=== PATIENT | male | born 1970 | race Two or more races ===

== ENCOUNTER 2017-08-03 11:08 | Observation (INO) | payer MEDICAID ==
[~2017-08-03] VITALS: Ht 167.6 cm; Wt 77.7 kg
[2017-08-03 11:48] LABS: BASOPHILS % (AUTO) 0.2 % (0-1); EOSINOPHILS # (AUTO) 0.1 X10'3 (0-0.9); EOSINOPHILS % (AUTO) 1.1 % (0-6); HEMATOCRIT 46.4 % (42.0-52.0); HEMOGLOBIN 15.6 g/dl (14.0-17.9); LYMPHOCYTES # (AUTO) 1.4 X10'3 (1.1-4.8); LYMPHOCYTES % (AUTO) 17.5 % (21-51); MEAN CORPUSCULAR HEMOGLOBIN 30.6 PG (27.0-31.0); MEAN CORPUSCULAR HGB CONC 33.6 % (33.0-36.5); MEAN CORPUSCULAR VOLUME 90.9 FL (78-98); MEAN PLATELET VOLUME 8.2 FL (7.4-10.4); MONOCYTES # (AUTO) 0.3 X10'3 (0-0.9); MONOCYTES % (AUTO) 3.8 % (2-12); NEUTROPHILS % (AUTO) 77.4 % (42-75); PLATELET COUNT 288 X10'3 (140-440); RED BLOOD COUNT 5.11 X10'6 (4.70-6.10); RED CELL DISTRIBUTION WIDTH 13.3 % (11.5-14.5); WHITE BLOOD COUNT 7.8 X10'3 (4.5-11.0)
[2017-08-03 11:59] LABS: PARTIAL THROMBOPLASTIN TIME 25 SECONDS (22-32); PROTHROMBIN TIME 10.7 SECONDS (9.0-12.0)
[2017-08-03 12:07] LABS: ALANINE AMINOTRANSFERASE 65 U/L (12-78); ALBUMIN 3.9 G/DL (3.4-5.0); ALBUMIN/GLOBULIN RATIO 0.9 (1.1-1.5); ALKALINE PHOSPHATASE 126 IU/L (46-116); ANION GAP 8 (8-16); ASPARTATE AMINO TRANSFERASE 37 U/L (10-37); BILIRUBIN,TOTAL 0.6 MG/DL (0.1-1.0); BLOOD UREA NITROGEN 16 MG/DL (7-18); BUN/CREATININE RATIO 13.6 (5.4-32.0); CALCIUM 9.8 MG/DL (8.5-10.1); CHLORIDE 102 MMOL/L (99-107); CREATININE 1.18 MG/DL (0.60-1.10); GLUCOSE 115 MG/DL (70-104); POTASSIUM 4.3 MMOL/L (3.5-5.1); SODIUM 138 MMOL/L (135-145); TOTAL CARBON DIOXIDE 28.1 MMOL/L (24-32); TOTAL PROTEIN 8.3 G/DL (6.4-8.2); eGFR 67 ML/MIN
[2017-08-03] MEDS ORDERED: metoprolol tartrate 25mg tablet PO ONE (12:25)
[2017-08-03] MEDS ORDERED: aspirin 81mg tab.chew PO ONE (12:25)
[2017-08-03] MEDS: nitroGLYCERIN 0.4mg SUBLingual tab SL PRN ×2 (12:44→12:51)
[2017-08-03 12:49] LABS: D-DIMER < 0.19 MG/L FEU (0-0.50)
[2017-08-03] MEDS ORDERED: normal saline 1000ML IV soln IVB ONE (12:55)
[2017-08-03] MEDS ORDERED: ondansetron/PF 4mg/2ml inj IV ONE (12:55)
[2017-08-03] MEDS ORDERED: NO HOME MEDS (13:01)
[2017-08-03] MEDS ORDERED: mag hydrox/Alum hydrox/simeth 30ml oral suspension PO PRN (14:05)
[2017-08-03] MEDS ORDERED: magnesium hydroxide 30ml (MOM) UD suspension PO PRN (14:05)
[2017-08-03] MEDS ORDERED: acetaminophen 325mg tablet PO PRN (14:05)
[2017-08-03] MEDS ORDERED: ondansetron/PF 4mg/2ml inj IV PRN (14:05)
[2017-08-03] MEDS: normal saline 1000ml 1,000 ML IV SCH ×3 (14:16→18:00)
[2017-08-03] MEDS ORDERED: aminophylline 250mg/10ml inj. IV PRN (15:45)
[2017-08-03] MEDS ORDERED: metoprolol tartrate 1mg/ml inj IV PRN (15:45)
[2017-08-03] MEDS ORDERED: nitroGLYCERIN 0.4mg SUBLingual tab SL PRN (15:45)
[2017-08-03] MEDS ORDERED: regadenoson 0.4mg/5ml syringe IV ONE (15:45)
[2017-08-03 15:55] VITALS: BP 114/72
[2017-08-03 19:00] VITALS: BP 102/62
[2017-08-03] MEDS: heparin, porcine 5000 units/ml vial SQ SCH (21:45)
[2017-08-03 23:00] VITALS: BP 89/57
[2017-08-04] VITALS (12 sets, daily range): BP systolic 84–110; BP diastolic 53–70
[2017-08-04 06:24] LABS: BASOPHILS % (AUTO) 0.1 % (0-1); EOSINOPHILS # (AUTO) 0.2 X10'3 (0-0.9); EOSINOPHILS % (AUTO) 3.1 % (0-6); HEMATOCRIT 42.1 % (42.0-52.0); HEMOGLOBIN 14.1 g/dl (14.0-17.9); LYMPHOCYTES # (AUTO) 2.2 X10'3 (1.1-4.8); LYMPHOCYTES % (AUTO) 26.9 % (21-51); MEAN CORPUSCULAR HEMOGLOBIN 30.3 PG (27.0-31.0); MEAN CORPUSCULAR HGB CONC 33.5 % (33.0-36.5); MEAN CORPUSCULAR VOLUME 90.6 FL (78-98); MEAN PLATELET VOLUME 8.5 FL (7.4-10.4); MONOCYTES # (AUTO) 0.5 X10'3 (0-0.9); MONOCYTES % (AUTO) 6.4 % (2-12); NEUTROPHILS # (AUTO) 5.1 X10'3 (1.8-7.7); NEUTROPHILS % (AUTO) 63.5 % (42-75); PLATELET COUNT 234 X10'3 (140-440); RED BLOOD COUNT 4.65 X10'6 (4.70-6.10); WHITE BLOOD COUNT 8.1 X10'3 (4.5-11.0)
[2017-08-04 07:02] LABS: ALBUMIN 3.3 G/DL (3.4-5.0); ANION GAP 7 (8-16); BLOOD UREA NITROGEN 17 MG/DL (7-18); CALCIUM 8.6 MG/DL (8.5-10.1); CHLORIDE 105 MMOL/L (99-107); CREATININE 1.31 MG/DL (0.60-1.10); GLUCOSE 88 MG/DL (70-104); POTASSIUM 4.2 MMOL/L (3.5-5.1); SODIUM 141 MMOL/L (135-145); TOTAL CARBON DIOXIDE 28.7 MMOL/L (24-32); eGFR 59 ML/MIN
[2017-08-04] MEDS: normal saline 1000ml 1,000 ML IV SCH ×2 (07:36→10:10)
[2017-08-04] MEDS ORDERED: aspirin 81mg tablet.DR PO SCH (08:00)
[2017-08-04] MEDS: heparin, porcine 5000 units/ml vial SQ SCH (08:21)
[2017-08-04] MEDS ORDERED: aminophylline inj. 10 ML IV ONE (10:10)
[2017-08-04] MEDS ORDERED: regadenoson 0.4mg/5ml syringe IV ONE (10:10)
[2017-08-04] MEDS ORDERED: OMEP40CA37 PO (12:09)
== END 2017-08-04 12:40 | disposition home or self-care (01) ==
LOC: ER 11:09 → ED HOLD 14:02 → PCU 3S 15:55
PROVIDERS: ADMIT Family Medicine; ATTEND Family Medicine
DX: R07.89 Other chest pain (principal); K21.9 Gastro-esophageal reflux disease without esophagitis; I20.0 Unstable angina; Z87.442 Personal history of urinary calculi; Z86.11 Personal history of tuberculosis
CPT/HCPCS: 36415; 71045; 78452; 80048; 80053; 83880; 84484; 85025; 85379; 85610; 85730; 93005; 93017; 93306; 96361; 96372; 96374; 96375; 99285; A9500; G0378; J0280; J1644; J2270; J2405; J2785; J7030

== ENCOUNTER 2018-03-25 13:49 | Emergency (ER) | payer MEDICAID ==
[~2018-03-25] VITALS: Ht 167.6 cm; Wt 70.0 kg
[2018-03-25 14:07] LABS: CLARITY,URINE CLEAR (Clear); COLOR,URINE YELLOW (Yellow); GLUCOSE, URINE NEGATIVE (Neg); KETONES,URINE NEGATIVE (Neg); LEUKOCYTE ESTERASE ,URINE NEGATIVE (Neg); NITRITES, URINE NEGATIVE (Neg); OCCULT BLOOD,URINE SMALL (Neg); PROTEIN,URINE 30 mg/dl (Neg); UA COLLECTION TYPE CLN CATCH MIDSTREAM; UROBILINOGEN,URINE 0.2 E.U/dL (0.2-1.0)
[2018-03-25 14:12] LABS: BACTERIA,URINE FEW /HPF (Neg); RBC,URINE 0-2 /HPF (0-2); SQUAMOUS EPITHELIAL CELL,UR FEW /LPF (FEW); WBC,URINE 0-4 /HPF (0-4)
[2018-03-25] MEDS ORDERED: ondansetron/PF 4mg/2ml inj IV ONE (15:20)
[2018-03-25] MEDS ORDERED: morphine 4 MG/ML inj SYRINge IV ONE (15:20)
[2018-03-25 15:33] LABS: BASOPHILS % (AUTO) 0.2 % (0-1); EOSINOPHILS % (AUTO) 0.4 % (0-6); HEMATOCRIT 40.9 % (42.0-52.0); HEMOGLOBIN 13.3 g/dl (14.0-17.9); LYMPHOCYTES # (AUTO) 1.1 X10'3 (1.1-4.8); LYMPHOCYTES % (AUTO) 12.4 % (21-51); MEAN CORPUSCULAR HEMOGLOBIN 29.8 PG (27.0-31.0); MEAN CORPUSCULAR HGB CONC 32.5 % (33.0-36.5); MEAN CORPUSCULAR VOLUME 91.9 FL (78-98); MEAN PLATELET VOLUME 9.4 FL (7.4-10.4); MONOCYTES # (AUTO) 0.6 X10'3 (0-0.9); MONOCYTES % (AUTO) 6.6 % (2-12); NEUTROPHILS # (AUTO) 7.6 X10'3 (1.8-7.7); NEUTROPHILS % (AUTO) 80.4 % (42-75); PLATELET COUNT 261 X10'3 (140-440); RED BLOOD COUNT 4.45 X10'6 (4.70-6.10); RED CELL DISTRIBUTION WIDTH 12.5 % (11.5-14.5); WHITE BLOOD COUNT 9.3 X10'3 (4.5-11.0)
[2018-03-25 15:44] LABS: ALANINE AMINOTRANSFERASE 31 U/L (12-78); ALBUMIN 3.5 G/DL (3.4-5.0); ALBUMIN/GLOBULIN RATIO 0.9 (1.1-1.5); ALKALINE PHOSPHATASE 99 IU/L (46-116); ANION GAP 8 (8-16); ASPARTATE AMINO TRANSFERASE 21 U/L (10-37); BILIRUBIN,TOTAL 0.5 MG/DL (0.1-1.0); BLOOD UREA NITROGEN 22 MG/DL (7-18); BUN/CREATININE RATIO 13.8 (5.4-32.0); CHLORIDE 100 MMOL/L (99-107); CREATININE 1.59 MG/DL (0.60-1.10); GLUCOSE 94 MG/DL (70-104); POTASSIUM 3.8 MMOL/L (3.5-5.1); SODIUM 137 MMOL/L (135-145); TOTAL CARBON DIOXIDE 29.5 MMOL/L (24-32); TOTAL PROTEIN 7.4 G/DL (6.4-8.2); eGFR 47 ML/MIN
[2018-03-25] MEDS ORDERED: ketorolac trometh. 30mg/ml inj. IV ONE (15:50)
[2018-03-25] MEDS ORDERED: normal saline 1000ML IV soln IVB ONE (15:50)
[2018-03-25] MEDS ORDERED: FLO0.4C PO (16:23)
[2018-03-25] MEDS ORDERED: ONDA8TAB9 PO (16:23)
[2018-03-25] MEDS ORDERED: HYDR-3965 PO (16:23)
[2018-03-25 16:59] LABS: LIPASE 257 U/L (73-393)
[2018-03-25 17:24] VITALS: BP 136/88
== END 2018-03-25 17:25 | disposition home or self-care (01) ==
LOC: ER 13:50
DX: N20.9 Urinary calculus, unspecified (principal); Z87.442 Personal history of urinary calculi; Z79.899 Other long term (current) drug therapy
CPT/HCPCS: 36415; 74176; 80053; 81001; 83690; 85025; 96374; 96375; 99285; J1885; J2270; J2405; J7030

== ENCOUNTER 2018-03-29 18:03 | Emergency (ER) | payer MEDICAID ==
[~2018-03-29] VITALS: Ht 167.6 cm; Wt 77.3 kg
[~2018-03-29 18:03] MED LIST: FLO0.4C PO; HYDR-3965 PO; ONDA8TAB9 PO
[2018-03-29] MEDS ORDERED: ketorolac tromethamine 15mg/ml inj. IM ONE ×2 (18:25→19:00)
[2018-03-29 18:31] LABS: CLARITY,URINE CLEAR (Clear); GLUCOSE, URINE NEGATIVE (Neg); KETONES,URINE NEGATIVE (Neg); LEUKOCYTE ESTERASE ,URINE NEGATIVE (Neg); NITRITES, URINE POSITIVE (Neg); OCCULT BLOOD,URINE SMALL (Neg); PH,URINE 5.5 (4.8-8.0); PROTEIN,URINE 30 mg/dl (Neg)
[2018-03-29 18:43] LABS: COLOR,URINE PINK (Yellow); UA COLLECTION TYPE CLN CATCH MIDSTREAM
[2018-03-29 18:46] LABS: BACTERIA,URINE NONE SEEN /HPF (Neg); WBC,URINE NONE SEEN /HPF (0-4)
[2018-03-29 18:47] LABS: SQUAMOUS EPITHELIAL CELL,UR NONE SEEN /LPF (FEW)
[2018-03-29] MEDS ORDERED: HYDROcodone/acetaminophen 10/325mg tab PO ONE (19:00)
[2018-03-29] MEDS ORDERED: HYDR-569 PO (19:03)
[2018-03-29] MEDS ORDERED: TADA20TA PO (19:03)
[2018-03-29 19:38] VITALS: BP 138/71
== END 2018-03-29 19:40 | disposition home or self-care (01) ==
LOC: ER 18:03
DX: N21.9 Calculus of lower urinary tract, unspecified (principal)
CPT/HCPCS: 81001; 96372; 99283; J1885

== ENCOUNTER 2020-01-20 18:53 | Emergency (ER) | payer MEDICAID ==
[~2020-01-20 18:53] MED LIST changes: -FLO0.4C PO; -HYDR-3965 PO; +HYDR-4383 PO; +TADA20TA PO
== END 2020-01-20 19:59 | disposition left against medical advice (07) ==
LOC: ER 18:54
DX: B08.4 Enteroviral vesicular stomatitis with exanthem (principal); Z53.21 Procedure and treatment not carried out due to patient leaving prior to being seen by health care provider

== ENCOUNTER 2022-07-08 21:53 | Emergency (ER) | payer MEDICAID ==
[~2022-07-08] VITALS: Ht 167.6 cm; Wt 75.0 kg
[2022-07-08 22:04] VITALS: BP 141/92
== END 2022-07-09 00:39 | disposition left against medical advice (07) ==
LOC: ER 21:54
DX: J02.9 Acute pharyngitis, unspecified (principal); Z53.21 Procedure and treatment not carried out due to patient leaving prior to being seen by health care provider